=== PATIENT | female | born 2000 | race Caucasian/White ===

== ENCOUNTER 2019-07-23 23:20 | Emergency (ER) | payer BC ==
[~2019-07-23] VITALS: Wt 56.8 kg
[2019-07-23 23:42] VITALS: TEMP 98.5
[2019-07-24 01:10] VITALS: BP 125/74; PULSE 80
[2019-07-24 03:15] LABS: COLLECTION METHOD CLEAN CATCH; MUCOUS Present /lpf; PH 7 (5-8); SQUAMOUS EPITHELIAL 20-50 /hpf; URINE APPEARANCE Cloudy; URINE BACTERIA Rare /hpf; URINE BILIRUBIN Negative (NEGATIVE); URINE BLOOD Negative (NEGATIVE); URINE COLOR Yellow; URINE GLUCOSE Negative (NEGATIVE); URINE KETONE Negative (NEGATIVE); URINE LEUKOCYTE ESTERASE 3+ (NEGATIVE); URINE NITRATE Negative (NEGATIVE); URINE PROTEIN(semi-quant) Negative (NEGATIVE); URINE UROBILINOGEN Negative (NEGATIVE)
== END 2019-07-24 01:15 | disposition home or self-care (01) ==
LOC: COL.ER 23:20
PROVIDERS: Emergency Medicine
DX: N39.0 Urinary tract infection, site not specified (principal)
CPT/HCPCS: J1885